=== PATIENT | female | born 1980 | race Caucasian/White ===

== ENCOUNTER 2017-11-24 13:03 | Emergency (ER) | payer OTHER ==
[2017-11-24 13:16] VITALS: BMI 29.6
[2017-11-24 13:19] VITALS: TEMP 97.9
[2017-11-24] MEDS ORDERED: Sodium Chloride 0.9% 1,000 ML IV STA (13:45)
--- NOTE | 2017-11-24 13:48 | ED PDOC ---
Arrival/HPI - General Chief Complaint: GI Problem Time Seen by Provider: 11/24/17 13:45 Historian: Patient - History of Present Illness Narrative History of Present Illness (Text): 11/24/17 13:46 37 y/o female, no pmh, nkda, c/o nausea/vomiting and diarrhea started last night. Pt. stated that she has multiple episodes of nausea/vomiting and diarrhea last night. Aching pain, on and off, no numbness or tingling, no night sweat, no rash, no change in vision, no other medical or psychological complaints. Past Medical History - Provider Review Nursing Documentation Reviewed: Yes - Past History Past History: No Previous - Infectious Disease Hx of Infectious Diseases: None - Cardiac Hx Cardiac Disorders: No - Pulmonary Hx Respiratory Disorders: No - Neurological Hx Neurological Disorder: No - HEENT Hx HEENT Disorder: No - Renal Hx Renal Disorder: No - Endocrine/Metabolic Hx Endocrine Disorders: No - Hematological/Oncological Hx Blood Disorders: No - Integumentary Hx Dermatological Disorder: No - Musculoskeletal/Rheumatological Hx Musculoskeletal Disorders: No - Gastrointestinal Hx Gastrointestinal Disorders: Yes Hx Gastritis: Yes - Genitourinary/Gynecological Hx Genitourinary Disorders: No - Psychiatric Hx Psychophysiologic Disorder: No Hx Anxiety: No Hx Bipolar Disorder: No Hx Depression: No Hx Emotional Abuse: No Hx Hallucinations: No Hx Panic Disorder: No Hx Post Traumatic Stress Disorder: No Hx Psychosis: No Hx Physical Abuse: No Hx Schizophrenia: No Hx Sexual Abuse: No Hx Substance Use: No - Surgical History Hx Section: Yes - Anesthesia Hx Anesthesia: Yes Hx Anesthesia Reactions: No Hx Malignant Hyperthermia: No - Suicidal Assessment Feels Threatened In Home Enviroment: No Family/Social History - Physician Review Nursing Documentation Reviewed: Yes Family/Social History: Unknown Family HX Smoking Status: Never Smoked Hx Alcohol Use: No Hx Substance Use: No Allergies/Home Meds Allergies/Adverse Reactions: Allergies Unobtainable Allergy (Verified 11/24/17 13:15) Home Medications: Home Meds Medication Instructions Recorded Confirmed Loperamide [Imodium] 1 tab PO BID 11/24/17 11/24/17 Review of Systems - Review of Systems Constitutional: absent: Fatigue, Fevers Eyes: absent: Vision Changes ENT: absent: Hearing Changes Respiratory: absent: SOB, Cough Cardiovascular: absent: Chest Pain Gastrointestinal: Abdominal Pain, Nausea, Vomiting Musculoskeletal: absent: Arthralgias, Back Pain Skin: absent: Rash, Pruritis Hemo/Lymphatic: absent: Adenopathy Psychiatric: absent: Anxiety, Depression, Suicidal Ideation Physical Exam Vital Signs Reviewed: Yes Vital Signs Temp Pulse Resp BP Pulse Ox 11/24/17 13:18 97.9 F 82 17 93/68 L 97 Temperature: Afebrile Pulse: Regular Respiratory Rate: Normal Appearance: Positive for: Well-Appearing, Non-Toxic, Comfortable Pain Distress: Mild Mental Status: Positive for: Alert and Oriented X 3 - Systems Exam Head: Present: Atraumatic, Normocephalic Pupils: Present: PERRL Extroacular Muscles: Present: EOMI Conjunctiva: Present: Normal Mouth: Present: Moist Mucous Membranes Nose (Internal): Present: Normal Inspection, No Active Bleeding. No: Rhinorrhea , Septal Deviation, Septal Hematoma, Epistaxis Neck: Present: Normal Range of Motion Respiratory/Chest: Present: Clear to Auscultation, Good Air Exchange. No: Respiratory Distress, Accessory Muscle Use Cardiovascular: Present: Regular Rate and Rhythm, Normal S1, S2. No: Murmurs Abdomen: Present: Tenderness (epigastric), Normal Bowel Sounds. No: Distention , Peritoneal Signs, Rebound, Guarding Back: Present: Normal Inspection Upper Extremity: Present: Normal Inspection. No: Cyanosis, Edema Lower Extremity: Present: Normal Inspection. No: Edema Neurological: Present: GCS=15, CN II-XII Intact, Speech Normal Skin: Present: Warm, Dry, Normal Color. No: Rashes Psychiatric: Present: Alert, Oriented x 3, Normal Insight, Normal Concentration Medical Decision Making ED Course and Treatment: 11/24/17 13:48 -labs/ua/rapid flu -IVF/pepcid/reglan -Observe and reassess 11/24/17 15:10 -Labs are non significant -UA show no UTI -Rapid flu is negative -Pt. has no abdominal pain now, eating and drinking well, abdominal is soft with no tenderness or guarding, no advance labs or imaging indicated at this time. -Discharge home with pepcid, zofran, stay hydrated, BRAT diet, avoid dairy product until symptoms improved, return to the ER for any new or worsening signs or symptoms. - Lab Interpretations Lab Results: 11/24/17 14:05 11/24/17 14:05 Lab Results 11/24/17 14:13: Urine Color Yellow, Urine Appearance Clear, Urine pH 6.0, Ur Specific [place] 1.015, Urine Protein Negative, Urine Glucose (UA) Negative, Urine Ketones Negative, Urine Blood Negative, Urine Nitrate Negative, Urine Bilirubin Negative, Urine Urobilinogen 0.2, Ur Leukocyte Esterase Negative 11/24/17 14:05: Sodium 137, Potassium 3.7, Chloride 102, Carbon Dioxide 25, Anion Gap 13, BUN 13, Creatinine 0.6 L, Est GFR ( Amer) > 60, Est GFR ( Non-Af Amer) > 60, Random Glucose 85, Calcium 9.2, Magnesium 1.7, Total Bilirubin 0.8, AST 20, ALT 38, Alkaline Phosphatase 45, Total Protein 7.3, Albumin 4.1, Globulin 3.2, Albumin/Globulin Ratio 1.3, Lipase 197 11/24/17 14:05: Influenza Typ A,B (EIA) Negative for flu a/b 11/24/17 14:05: WBC 4.2 L D, RBC 4.53, Hgb 11.6 L, Hct 35.7 L, MCV 78.8 L, MCH 25.6, MCHC 32.5, RDW 14.7 H, Plt Count 146, MPV 11.3 H, Gran % 71.7 H, Lymph % ( Auto) 18.1 L, [place] % (Auto) 10.0 H, Eos % (Auto) 0.2 L, Baso % (Auto) 0.0, Gran # 3.02, Lymph # 0.8 L, [place] # 0.4, Eos # 0.0, Baso # 0.00 I have reviewed the lab results: Yes Interpretation: No clinic. lab abnormalty - Medication Orders Current Medication Orders: Discontinued Medications Famotidine (Pepcid) 20 mg IVP STAT STA Stop: 11/24/17 13:46 Last Admin: 11/24/17 14:48 Dose: 20 mg IVP Administration Document 11/24/17 14:48 EQ (Rec: 11/24/17 14:48 EQ [facility] [id number]) Charges for Administration # of IVP Administrations 1 Sodium Chloride (Sodium Chloride 0.9%) 1,000 mls @ 999 mls/hr IV .Q1H1M STA Stop: 11/24/17 14:45 Last Admin: 11/24/17 14:48 Dose: 999 mls/hr eMAR Start Stop Document 11/24/17 14:48 EQ (Rec: 11/24/17 14:49 EQ [facility] [id number][place] Intravenous Solution Start Date 11/24/17 Start Time 14:48 Metoclopramide HCl (Reglan) 10 mg IVP STAT STA Stop: 11/24/17 13:46 Last Admin: 11/24/17 14:48 Dose: 10 mg IVP Administration Document 11/24/17 14:48 EQ (Rec: 11/24/17 14:48 EQ [facility] [id number]) Charges for Administration # of IVP Administrations 1 - PA / ABLE [employer]IED SEAMAN / Resident Statement MD/DO has reviewed & agrees with the documentation as recorded. Disposition/Present on Arrival - Present on Arrival Any Indicators Present on Arrival: No History of DVT/PE: No History of Uncontrolled Diabetes: No Urinary Catheter: No History of Decub. Ulcer: No History Surgical Site Infection Following: None - Disposition Have Diagnosis and Disposition been Completed?: Yes Diagnosis: Nausea vomiting and diarrhea Disposition: HOME/ ROUTINE Disposition Time: 15:12 Patient Plan: Discharge Condition: IMPROVED Additional Instructions: -Discharge home with pepcid, zofran, stay hydrated, BRAT diet, avoid dairy product until symptoms improved, return to the ER for any new or worsening signs or symptoms. Prescriptions: Famotidine [Pepcid] 20 mg PO BID #30 tab Ondansetron [Zofran] 4 mg PO Q8H PRN #10 tab PRN Reason: Nausea/Vomiting [facility] - Follow up with primary Miky Saravia MD [Medical Doctor] - Follow up with primary Forms: [employer] ([place]an), WORK NOTE
[2017-11-24 14:20] LABS: URINE BILIRUBIN NEGATIVE (NEGATIVE); URINE BLOOD NEGATIVE (NEGATIVE); URINE GLUCOSE (UA) NEGATIVE (NEGATIVE); URINE LEUKOCYTE ESTERASE NEGATIVE Leu/uL (NEGATIVE); URINE NITRATE NEGATIVE (NEGATIVE); URINE PROTEIN NEGATIVE mg/dL (<30 mg/dL); URINE UROBILINOGEN 0.2 E.U./dL (<1 E.U./dL)
[2017-11-24 14:21] LABS: URINE APPEARANCE CLEAR (CLEAR); URINE COLOR YELLOW (YELLOW)
[2017-11-24 14:32] LABS: EOS % 0.2 % (1.5-5.0); GRAN # 3.02 (1.4-6.5); GRAN % 71.7 % (50.0-68.0); HEMOGLOBIN 11.6 g/dL (12.0-16.0); LYMPH # 0.8 (1.2-3.4); LYMPH % 18.1 % (22.0-35.0); MEAN CELL VOLUME 78.8 fl (80.0-105.0); MEAN CORPUSCULAR HEMOGLOBIN 25.6 pg (25.0-35.0); MEAN CORPUSCULAR HGB CONC 32.5 g/dl (31.0-37.0); MEAN PLATELET VOLUME 11.3 fl (7.0-11.0); MONO # 0.4 (0.1-0.6); RBC 4.53 10^6/uL (3.5-6.1); RED CELL DISTRIBUTION WIDTH 14.7 % (11.5-14.5); WHITE BLOOD COUNT 4.2 10^3/ul (4.5-11.0)
[2017-11-24 14:41] LABS: ALB/GLOB RATIO 1.3 (1.1-1.8); ALBUMIN 4.1 g/dL (3.0-4.8); ALT/SGPT 38 U/L (7-56); AST/SGOT 20 U/L (14-36); BLOOD UREA NITROGEN 13 mg/dL (7-21); CALCIUM 9.2 mg/dL (8.4-10.5); GFR AFRICAN-AMERICAN > 60; GFR NON-AFRICAN AMERICAN > 60; LIPASE 197 U/L (23-300); MAGNESIUM 1.7 mg/dL (1.7-2.2)
[2017-11-24 15:25] VITALS: BP 103/72; PULSE 79; RESP 18; O2SAT 100
== END 2017-11-24 15:25 | disposition home or self-care (01) ==
LOC: ED 13:03
DX: R11.2 Nausea with vomiting, unspecified (principal); R19.7 Diarrhea, unspecified
CPT/HCPCS: 80053; 81003; 83690; 83735; 85025; 87804; 96374; 96375; 99284; J2765; J7040